=== PATIENT | female | born 1945 | race Caucasian/White ===

== ENCOUNTER 2017-10-19 13:55 | Inpatient (IN) | payer MEDICARE, BC ==
[2017-10-19] VITALS (14 sets, daily range): BP systolic 136–192; BP diastolic 73–100; PULSE 70–115; RESP 14–26; TEMP 98.3–99.2; O2SAT 88–100
[~2017-10-19 13:55] MED LIST: AMLO5TAB96 PO
[2017-10-19] MEDS: RESP: ALBUTEROL 2.5 MG/IPRATROPIUM 0.5 MG NEB (SCH) INH ×4 (14:09→23:35)
[2017-10-19 14:15] LABS: AUTOMATED NEUTROPHIL # 5.4 TH/MM3 (1.8-7.7); BASOPHIL # 0.1 TH/MM3 (0-0.2); EOSINOPHIL % 0.4 % (0.0-4.0); HEMOGLOBIN 13.8 GM/DL (11.6-15.3); LYMPH % 25.1 % (9.0-44.0); LYMPHOCYTE # 2.2 TH/MM3 (1.0-4.8); MEAN CELL VOLUME 89.7 FL (80.0-100.0); MEAN CORPUSCULAR HEMOGLOBIN 28.8 PG (27.0-34.0); MEAN CORPUSCULAR HGB CONC 32.1 % (32.0-36.0); MEAN PLATELET VOLUME 8.4 FL (7.0-11.0); MONO % 10.4 % (0.0-8.0); MONOCYTE # 0.9 TH/MM3 (0-0.9); NEUT % 63.1 % (16.0-70.0); PLATELET COUNT 285 TH/MM3 (150-450); RED BLOOD COUNT 4.79 MIL/MM3 (4.00-5.30); RED CELL DISTRIBUTION WIDTH 13.9 % (11.6-17.2); WHITE BLOOD COUNT 8.6 TH/MM3 (4.0-11.0)
[2017-10-19] MEDS ORDERED: SODIUM CHLORIDE 0.9% FLUSH 10 ML FLUSH IVF PRN (14:15)
[2017-10-19] MEDS ORDERED: methylPREDNISolone SOD SUCC 125 MG/2 ML VIAL IV PUSH ONE (14:15)
--- NOTE | 2017-10-19 14:17 | PD ---
HPI Chief Complaint: cough, back pain Time Seen by Provider: 14:01 Travel History International Travel<30 days: No Contact w/Intl Traveler<30days: No History of Present Illness HPI 72-year-old female arrives with a complaint of cough for the past 2 weeks. Sputum/green phlegm production noted. Patient also feels short of breath. Patient also reports back. Midthoracic back midline distribution. She denies fever. No chest pain. No injury. The patient reports she was told she had COPD however takes no medication for it. PFSH Past Medical History Arthritis: Yes Asthma: No Autoimmune Disease: No Blood Disorders: No Anxiety: No Depression: Yes Heart Rhythm Problems: No Cancer: No Cardiovascular Problems: Yes High Cholesterol: No Chemotherapy: No Chest Pain: No Congestive Heart Failure: No COPD: Yes Cerebrovascular Accident: No Diabetes: No Diminished Hearing: No Endocrine: No Gastrointestinal Disorders: Yes (OCC CONSTIPATION) GERD: Yes Glaucoma: No Genitourinary: Yes Headaches: No Hepatitis: No Hiatal Hernia: No Hypertension: Yes Immune Disorder: No Kidney Stones: Yes Musculoskeletal: Yes Neurologic: No Psychiatric: Yes Reproductive: No Respiratory: Yes Migraines: No Myocardial Infarction: No Radiation Therapy: No Renal Failure: No Seizures: No Sickle Cell Disease: No Sleep Apnea: No Thyroid Disease: No Ulcer: No Menopausal: Yes Past Surgical History Abdominal Surgery: No AICD: No Appendectomy: No Arteriovenous Shunt: No Cardiac Surgery: No Cholecystectomy: No Ear Surgery: No Endocrine Surgery: No Eye Surgery: No Genitourinary Surgery: No Gynecologic Surgery: No Insulin Pump: No Joint Replacement: No Oral Surgery: No Pacemaker: No Thoracic Surgery: No Tonsillectomy: Yes Other Surgery: Yes (TON/ADNO---@10YRS LUMPECT [place] [id number]) Social History Alcohol Use: No Tobacco Use: Yes (5 CIGS PER DAY) Substance Use: No Allergies-Medications (Allergen,Severity, Reaction): Coded Allergies: baclofen (Unverified Allergy, Severe, SHAKES/CAN'T BREATH, 10/19/17) cephalexin (Unverified Allergy, Severe, SWEATING/RASH, 10/19/17) escitalopram (Unverified Allergy, Severe, UNSURE, 10/19/17) gabapentin (Unverified Allergy, Severe, UNSURE, 10/19/17) chest burning pregabalin (Unverified Allergy, Severe, 10/19/17) chest burning topiramate (Unverified Allergy, Severe, UNSURE, 10/19/17) chest burning/ legs and feet burning moxifloxacin (Unverified Adverse Reaction, Severe, WEAKNESS IN LEGS, ) Reported Meds & Prescriptions Reported Meds & Active Scripts Active Proair Hfa 8.5 GM Inh (Albuterol Sulfate) 90 Mcg/Act Aer 1 Puff INH Q4H PRN 108 mcg/actuation Prednisone 20 Mg Tab 40 Mg PO DAILY 5 Days Take 40 mg (2 tablets) daily for 5 days Azithromycin 250 Mg Tab 250 Mg PO DIRECTED Take 2 tabs (500 mg) on day 1 then 1 tab daily x 4 days. Review of Systems Except as stated in HPI: all other systems reviewed are Neg General / Constitutional: No: Fever Eyes: No: Blurred Vision Physical Exam Narrative GENERAL: 72-year-old female pleasant well-nourished well-developed mild respiratory distress, speaking sentences SKIN: Warm and dry. HEAD: Atraumatic. Normocephalic. EYES: Pupils equal and round. No scleral icterus. No injection or drainage. ENT: No nasal bleeding or discharge. Mucous membranes pink and moist. NECK: Trachea midline. No JVD. CARDIOVASCULAR: Tachycardia to about 110. Regular. RESPIRATORY: Mild tachypnea. Trace wheezing. GASTROINTESTINAL: Abdomen soft, non-tender, nondistended. Hepatic and splenic margins not palpable. MUSCULOSKELETAL: Extremities without clubbing, cyanosis, or edema. No obvious deformities. NEUROLOGICAL: Awake and alert. No obvious cranial nerve deficits. Motor grossly within normal limits. Five out of 5 muscle strength in the arms and legs. Normal speech. PSYCHIATRIC: Appropriate mood and affect; insight and judgment normal. Data Data Last Documented VS Vital Signs Date Time Temp Pulse Resp B/P (MAP) Pulse Ox O2 Delivery O2 Flow Rate FiO2 10/19/17 15:21 90 22 146/78 (100) 93 Nasal Cannula 2.00 10/19/17 14:25 99.2 Orders Orders Electrocardiogram (10/19/17 14:01) Basic Metabolic Panel (Bmp) (10/19/17 14:01) Complete Blood Count With Diff (10/19/17 14:01) Lactic Acid Sepsis Protocol (10/19/17 14:01) Chest, Single Ap (10/19/17 14:01) Arterial Blood Gas (Abg) (10/19/17 14:01) Ecg Monitoring (10/19/17 14:01) Iv Access Insert/Monitor (10/19/17 14:01) Oximetry (10/19/17 14:01) Oxygen Administration (10/19/17 14:01) Sodium Chloride 0.9% Flush (Ns Flush) (10/19/17 14:15) Albuterol-Ipratropium Neb (Duoneb Neb) (10/19/17 14:15) Methylprednisolone So Succ Inj (Solumedr (10/19/17 14:15) Sodium Chlor 0.9% 1000 Ml Inj (Ns 1000 M (10/19/17 14:30) Acetamin-Hydrocod 325-5 Mg ([place] 5-325 (10/19/17 14:30) Azithromycin (Zithromax) (10/19/17 15:45) Admit Order (Ed Use Only) (10/19/17 ) Rug Cleaning Supervisor / Telemetry KRISTOPHER.Q8H (10/19/17 16:19) Vital Signs (Adult) Q4H (10/19/17 16:19) Activity Bed Rest (10/19/17 16:19) Labs Laboratory Tests Test 10/19/17 14:00 10/19/17 14:11 White Blood Count 8.6 TH/MM3 Red Blood Count 4.79 MIL/MM3 Hemoglobin 13.8 GM/DL Hematocrit 43.0 % Mean Corpuscular Volume 89.7 FL Mean Corpuscular Hemoglobin 28.8 PG Mean Corpuscular Hemoglobin Concent 32.1 % Red Cell Distribution Width 13.9 % Platelet Count 285 TH/MM3 Mean Platelet Volume 8.4 FL Neutrophils (%) (Auto) 63.1 % Lymphocytes (%) (Auto) 25.1 % Monocytes (%) (Auto) 10.4 % Eosinophils (%) (Auto) 0.4 % Basophils (%) (Auto) 1.0 % Neutrophils # (Auto) 5.4 TH/MM3 Lymphocytes # (Auto) 2.2 TH/MM3 Monocytes # (Auto) 0.9 TH/MM3 Eosinophils # (Auto) 0.0 TH/MM3 Basophils # (Auto) 0.1 TH/MM3 CBC Comment DIFF FINAL Differential Comment Blood Urea Nitrogen 31 MG/DL Creatinine 1.30 MG/DL Random Glucose 135 MG/DL Calcium Level 9.1 MG/DL Sodium Level 133 MEQ/L Potassium Level 4.3 MEQ/L Chloride Level 93 MEQ/L Carbon Dioxide Level 33.6 MEQ/L Anion Gap 6 MEQ/L Estimat Glomerular Filtration Rate 40 ML/MIN Lactic Acid Level 2.8 mmol/L Blood Gas Puncture Site RT RADIAL Blood Gas Patient Temperature 98.6 Blood Gas HCO3 33 mmol/L Blood Gas Base Excess 6.0 mmol/L Blood Gas Oxygen Saturation 97 % Arterial Blood pH 7.27 Arterial Blood Partial Pressure CO2 74 mmHG Arterial Blood Partial Pressure O2 372 mmHG Arterial Blood Oxygen Content 19.5 Vol % Arterial Blood Carboxyhemoglobin 1.4 % Arterial Blood Methemoglobin 1.1 % Blood Gas Hemoglobin 13.7 G/DL Oxygen Delivery Device NRB Blood Gas Liter Flow 12 L/M MDM Medical Decision Making Medical Screen Exam Complete: Yes Emergency Medical Condition: Yes Medical Record Reviewed: Yes Differential Diagnosis Pneumonia, COPD, pneumothorax, CHF Narrative Course CBC & BMP Diagram 10/19/17 14:00 Calcium Level 9.1 Lactic acid 2.8 Anion gap 6 AB.27/74/33 pO2 372 on NRB Pt reassessed at 335PM and found to be resting comfortably. Patient reports back pain has improved. Last Impressions Chest X-Ray 10/19/17 1401 Signed Impressions: Service Date/Time: October 14:14 - CONCLUSION: The lungs are clear. Ruiz Kennedy MD Pt attempted to ambulate however upon standing, O2 sat decreased to 90% and the patient began to hyperventilate. Admission for ongoing O2 and nebs. D/w Dr Arriaga at [phone] with a request to have building cleaner service manage patient D/w Dr Beaver at approx [phone] who accepted the patient Diagnosis Primary Impression: Bronchitis Additional Impressions: COPD (chronic obstructive pulmonary disease) Qualified Codes: J44.9 - Chronic obstructive pulmonary disease, unspecified Back pain Qualified Codes: M54.6 - Pain in thoracic spine; G89.29 - Other chronic pain Referrals: Primary Care Physician 2 days Med/Other Pt SpecificInfo: Prescription(s) given Scripts Albuterol 8.5 GM Inh (Proair Hfa 8.5 GM Inh) 90 Mcg/Act Aer 1 PUFF INH Q4H Y for SHORTNESS OF BREATH, #1 INHALER 0 Refills 108 mcg/actuation Prov: Brady Patel MD 10/19/17 Prednisone (Prednisone) 20 Mg Tab 40 MG PO DAILY for 5 Days, #10 TAB 0 Refills Take 40 mg (2 tablets) daily for 5 days Prov: Brady Patel MD 10/19/17 Azithromycin (Azithromycin) 250 Mg Tab 250 MG PO DIRECTED for Infection, #6 TAB 0 Refills Take 2 tabs (500 mg) on day 1 then 1 tab daily x 4 days. Prov: Brady Patel MD 10/19/17 Disposition: 01 DISCHARGE HOME Condition: Stable Brady Patel MD Oct 19, 2017 14:17
[2017-10-19 14:25] LABS: BICARBONATE 33.6 MEQ/L (21.0-32.0); CALCIUM 9.1 MG/DL (8.5-10.1)
--- NOTE | 2017-10-19 14:28 | RADRPT ---
EXAM DATE/TIME: 10/19/2017 14:14 [facility] COMPARISON: No previous studies available for comparison. INDICATIONS : Congestion and shortness of breath for two weeks. MEDICAL HISTORY : None. SURGICAL HISTORY : None. ENCOUNTER: Initial ACUITY: 2 weeks PAIN SCORE: 0/10 LOCATION: Bilateral chest FINDINGS: A single view of the chest demonstrates the lungs to be symmetrically aerated without evidence of mas s, infiltrate or effusion. The cardiomediastinal contours are unremarkable. Osseous structures are intact. CONCLUSION: The lungs are clear. Ruiz Kennedy MD on October 19, 2017 at 14:26 Board Certified Radiologist. This report was verified electronically.
[2017-10-19 14:29] LABS: CREATININE 1.3 MG/DL (0.50-1.00)
[2017-10-19] MEDS ORDERED: ACETAMINOPHEN/HYDROcodone 325 MG/5 MG TAB PO ONE (14:30)
[2017-10-19] MEDS ORDERED: SODIUM CHLOR 0.9% 1000 ML INJ 1,000 ML IV ONE (14:30)
[2017-10-19 14:32] LABS: LACTIC ACID SEPSIS PROTOCOL 2.8 mmol/L (0.4-2.0)
[2017-10-19] MEDS ORDERED: AZIT250T3 PO (15:41)
[2017-10-19] MEDS ORDERED: PRED20 PO (15:41)
[2017-10-19] MEDS ORDERED: ALBUAER3 INH (15:41)
[2017-10-19] MEDS ORDERED: AZITHROMYCIN 250 MG TAB PO ONE (15:45)
[2017-10-19] MEDS ORDERED: MISCELLANEOUS NURSING INFORMATION XX SCH (16:45)
[2017-10-19] MEDS ORDERED: MAGNESIUM HYDROXIDE SUSP 30 ML CUP PO PRN (16:45)
[2017-10-19] MEDS ORDERED: CHLORHEXIDINE GLUCONATE 2 % 1 PACK (2 CLOTHS) TOP PRN (16:45)
[2017-10-19] MEDS ORDERED: BISACODYL 10 MG SUPP RECTAL PRN (16:45)
[2017-10-19] MEDS ORDERED: ACETAMINOPHEN 325 MG TAB PO PRN (16:45)
[2017-10-19] MEDS ORDERED: LACTULOSE SYRUP 20 GM/30 ML CUP PO PRN (16:45)
[2017-10-19] MEDS ORDERED: ONDANSETRON HCL 4 MG/2 ML VIAL IV PUSH PRN (17:00)
[2017-10-19] MEDS ORDERED: RESP: ALBUTEROL 2.5 MG/3 ML NEB (PRN) NEB (17:00)
--- NOTE | 2017-10-19 17:01 | HHI.HP ---
[facility] Service Critical Care Medicine Primary Care Physician No Primary Care Physician Admission Diagnosis COPD; Back Pain Diagnosis: (1) Acute on chronic respiratory failure with hypoxemia Diagnosis: Principal (2) COPD with acute exacerbation Diagnosis: Principal (3) Hypertension Diagnosis: Principal (4) Encephalopathy, metabolic Diagnosis: Secondary Chief Complaint: Confused, difficulty breathing Travel History International Travel<30 Days: No Contact w/Intl Traveler <30 Da: No Traveled to Known Affected Are: No History of Present Illness This 72-year-old ill appearing woman presents to the emergency department with acute exacerbation of respiratory distress. She has COPD by history but became acutely worse over the past 36 hours. Her sister states that when she was confused earlier today, had markedly difficult respiratory pattern with quite labored breathing. Sister states that she had been coughing up greenish tinged sputum for several days now. There is edema involving both lower extremities, however the left side appears more chronic probably related to a previous melanoma resection. The right leg and ankle are acutely edematous. The patient has audible wheezing and labored breathing following several nebulizer treatments. Her partial pressure of carbon dioxide is 72, partly chronically compensated. My auscultation her air movement is poor bilaterally. Review of Systems Constitutional: DENIES: Diaphoretic episodes, Fatigue, Fever, Weight gain, Weight loss, Chills, Dizziness, Change in appetite, Night Sweats Endocrine: DENIES: Abnorml menstrual pattern, Heat/cold intolerance, Polydipsia , Polyuria, Polyphagia Eyes: DENIES: Blurred vision, Diplopia, Eye inflammation, Eye pain, Vision loss , Photosensitivity, Double Vision Respiratory: COMPLAINS OF: Cough, Wheezing, Sputum production, Shortness of breath Cardiovascular: COMPLAINS OF: Dyspnea on Exertion Gastrointestinal: DENIES: Abdominal pain, Black stools, Bloody stools, Constipation, Diarrhea, Nausea, Vomiting, Difficulty Swallowing, Anorexia Musculoskeletal: COMPLAINS OF: Back pain Immunologic/allergic: DENIES: Eczema, Urticaria Psychiatric: COMPLAINS OF: Confusion Past Family Social History Allergies: Coded Allergies: baclofen (Unverified Allergy, Severe, SHAKES/CAN'T BREATH, 10/19/17) cephalexin (Unverified Allergy, Severe, SWEATING/RASH, 10/19/17) escitalopram (Unverified Allergy, Severe, UNSURE, 10/19/17) gabapentin (Unverified Allergy, Severe, UNSURE, 10/19/17) chest burning pregabalin (Unverified Allergy, Severe, 10/19/17) chest burning topiramate (Unverified Allergy, Severe, UNSURE, 10/19/17) chest burning/ legs and feet burning moxifloxacin (Unverified Adverse Reaction, Severe, WEAKNESS IN LEGS, ) Past Medical History Past Medical History Arthritis: Yes Depression: Yes Cardiovascular Problems: Yes COPD: Yes Gastrointestinal Disorders: Yes (OCC CONSTIPATION) GERD: Yes Glaucoma: No Genitourinary: Yes Hypertension: Yes Immune Disorder: No Kidney Stones: Yes Musculoskeletal: Yes Neurologic: No Psychiatric: Yes Reproductive: No Respiratory: Yes Menopausal: Yes Past Surgical History Pacemaker: No Thoracic Surgery: No Tonsillectomy: Yes Other Surgery: Yes (TON/ADNO---@10YRS [address]) Social History Alcohol Use: No Tobacco Use: Yes (5 CIGS PER DAY) Substance Use: No Allergies-Medications Allergies-Medications (Allergen,Severity, Reaction): Coded Allergies: baclofen (Unverified Allergy, Severe, SHAKES/CAN'T BREATH, 10/19/17) cephalexin (Unverified Allergy, Severe, SWEATING/RASH, 10/19/17) escitalopram (Unverified Allergy, Severe, UNSURE, 10/19/17) gabapentin (Unverified Allergy, Severe, UNSURE, 10/19/17) chest burning pregabalin (Unverified Allergy, Severe, 10/19/17) chest burning topiramate (Unverified Allergy, Severe, UNSURE, 10/19/17) chest burning/ legs and feet burning moxifloxacin (Unverified Adverse Reaction, Severe, WEAKNESS IN LEGS, ) Reported Meds & Prescriptions Reported Meds & Active Scripts Active Proair Hfa 8.5 GM Inh (Albuterol Sulfate) 90 Mcg/Act Aer 1 Puff INH Q4H PRN 108 mcg/actuation Prednisone 20 Mg Tab 40 Mg PO DAILY 5 Days Take 40 mg (2 tablets) daily for 5 days Azithromycin 250 Mg Tab 250 Mg PO DIRECTED Take 2 tabs (500 mg) on day 1 then 1 tab daily x 4 days. Physical Exam Vital Signs Vital Signs Date Time Temp Pulse Resp B/P (MAP) Pulse Ox O2 Delivery O2 Flow Rate FiO2 10/19/17 16:50 10/19/17 15:21 90 22 146/78 (100) 93 Nasal Cannula 2.00 10/19/17 14:25 99.2 72 22 176/89 (118) 97 Nasal Cannula 2.00 10/19/17 14:12 100 Non-Rebreather 12.00 10/19/17 14:00 115 24 192/100 (130) 88 10/19/17 14:00 88 Non-Rebreather 15.00 10/19/17 14:00 115 24 97 Non-Rebreather 15.00 10/19/17 14:00 88 Non-Rebreather 15.00 Physical Exam Pulse 115, blood pressure 192/100, respiratory rate 16 unlabored, temperature 99.2 Head: Atraumatic normal Neck: Supple airway widely patent audible transmitted wheezes Lungs: Bilateral coarse breath sounds with both rhonchi and crackles. Wheezing both sides worse on the right. 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 Right lower extremity is edematous at the ankle and lower leg with pitting and very mild erythema Neuro: She is slow to respond but is conversant when you get her attention. She moves 4 extremities to command. Pupillary response, extraocular movements, smile, grimace, tongue protrusion, shoulder shrug, normal. Generally lethargic and confused. Laboratory Laboratory Tests Test 10/19/17 14:00 10/19/17 14:11 White Blood Count 8.6 Red Blood Count 4.79 Hemoglobin 13.8 Hematocrit 43.0 Mean Corpuscular Volume 89.7 Mean Corpuscular Hemoglobin 28.8 Mean Corpuscular Hemoglobin Concent 32.1 Red Cell Distribution Width 13.9 Platelet Count 285 Mean Platelet Volume 8.4 Neutrophils (%) (Auto) 63.1 Lymphocytes (%) (Auto) 25.1 Monocytes (%) (Auto) 10.4 Eosinophils (%) (Auto) 0.4 Basophils (%) (Auto) 1.0 Neutrophils # (Auto) 5.4 Lymphocytes # (Auto) 2.2 Monocytes # (Auto) 0.9 Eosinophils # (Auto) 0.0 Basophils # (Auto) 0.1 CBC Comment DIFF FINAL Differential Comment Blood Urea Nitrogen 31 Creatinine 1.30 Random Glucose 135 Calcium Level 9.1 Sodium Level 133 Potassium Level 4.3 Chloride Level 93 Carbon Dioxide Level 33.6 Anion Gap 6 Estimat Glomerular Filtration Rate 40 Lactic Acid Level 2.8 Blood Gas Puncture Site RT RADIAL Blood Gas Patient Temperature 98.6 Blood Gas HCO3 33 Blood Gas Base Excess 6.0 Blood Gas Oxygen Saturation 97 Arterial Blood pH 7.27 Arterial Blood Partial Pressure CO2 74 Arterial Blood Partial Pressure O2 372 Arterial Blood Oxygen Content 19.5 Arterial Blood Carboxyhemoglobin 1.4 Arterial Blood Methemoglobin 1.1 Blood Gas Hemoglobin 13.7 Oxygen Delivery Device NRB Blood Gas Liter Flow 12 Result Diagram: 10/19/17 1400 10/19/17 1400 Yamil VTE Risk Assessment Yamil VTE Risk Assessment: Mod/High Risk (score >= 2) Sreekanthrini Risk Assessment Model Point Value = 1 Point Value = 2 Point Value = 3 Point Value = 5 Age 41-60 Minor surgery BMI > 25 kg/m2 Swollen legs Varicose veins or History of unexplained or recurrent spontaneous Oral contraceptives or hormone replacement Sepsis (< 1 month) Serious lung disease, including pneumonia (< 1 month) Abnormal pulmonary function Acute myocardial infarction Congestive heart failure (< 1 month) History of inflammatory bowel disease Medical patient at bed rest Age 61-74 Arthroscopic surgery Major open surgery (> 45 min) Laparoscopic surgery (> 45 min) Malignancy Confined to bed (> 72 hours) Immobilizing plaster cast Central venous access Age >= 75 History of VTE Family history of VTE Factor V Leiden Prothrombin [id number] Lupus anticoagulant Anticardiolipin antibodies Elevated serum homocysteine Heparin-induced thrombocytopenia Other congenital or acquired thrombophilia Stroke (< 1 month) Elective arthroplasty Hip, pelvis, or leg fracture Acute spinal cord injury (< 1 month) Prophylaxis Regimen Total Risk Factor Score Risk Level Prophylaxis Regimen 0-1 Low Early ambulation 2 Moderate Order ONE of the following: *Sequential Compression Device (SCD) *Heparin 5000 units SQ BID 3-4 Higher Order ONE of the following medications: *Heparin 5000 units SQ TID *Enoxaparin/Lovenox 40 mg SQ daily (WT < 150 kg, CrCl > 30 mL/min) *Enoxaparin/Lovenox 30 mg SQ daily (WT < 150 kg, CrCl > 10-29 mL/min) *Enoxaparin/Lovenox 30 mg SQ BID (WT < 150 kg, CrCl > 30 mL/min) AND/OR *Sequential Compression Device (SCD) 5 or more Highest Order ONE of the following medications: *Heparin 5000 units SQ TID (Preferred with Epidurals) *Enoxaparin/Lovenox 40 mg SQ daily (WT < 150 kg, CrCl > 30 mL/min) *Enoxaparin/Lovenox 30 mg SQ daily (WT < 150 kg, CrCl > 10-29 mL/min) *Enoxaparin/Lovenox 30 mg SQ BID (WT < 150 kg, CrCl > 30 mL/min) AND *Sequential Compression Device (SCD) Assessment and Plan Problem List: (1) Acute on chronic respiratory failure with hypoxemia ICD Code: J96.21 - Acute and chronic respiratory failure with hypoxia Status: Acute (2) COPD with acute exacerbation ICD Code: J44.1 - Chronic obstructive pulmonary disease with (acute) exacerbation Status: Acute (3) Encephalopathy, metabolic ICD Code: G93.41 - Metabolic encephalopathy Status: Acute (4) Hypertension ICD Code: I10 - Essential (primary) hypertension Status: Chronic Assessment and Plan Plan: 1. Admit ICU. 2. Noninvasive ventilation at 12/5 3. Maintain oxygen saturation at 87-93% 4. Pepcid and Lovenox for prophylaxis 5. Azithromycin for chronic bronchitis/COPD exacerbation 6. Lasix 40 mg twice daily. Hold IV fluid. 7. Repeat CBC and lactic acid in a.m. 8. Bed rest tonight up in chair in morning 9. Follow electrolytes closely anticipate marked diuresis 10. Cardiac ECHO Overall impression: This elderly woman is critically ill with an acute exacerbation of COPD complicated by hypoxemia and fluid overload. Her chest x- ray is read as clear but there appears to be hilar congestion and there is a worrisome chronic infiltrate in the right lower lobe. Her fever is minimal at 99.2 and her white count and differential are normal. I suspect this is pretty typical COPD exacerbation but complicated by some element of fluid overload and/ or heart failure. Critical Care 45 mins Problem Qualifiers (1) Hypertension: Qualified Codes: I10 - Essential (primary) hypertension Adama Hernandez MD Oct 19, 2017 17:01
[2017-10-19] MEDS ORDERED: MAGNESIUM OXIDE 400 MG TAB PO PRN (17:30)
[2017-10-19] MEDS ORDERED: POTASSIUM CHLORIDE 25 MEQ EFFERVESCENT TAB PO PRN (17:30)
[2017-10-19] MEDS ORDERED: MAGNESIUM SULFATE INJ 4 GM in SODIUM CHLORIDE 0.9% INJ 92 ML IV PRN (17:30)
[2017-10-19] MEDS ORDERED: POTASSIUM PHOSPHATE MONOBASIC 500 MG TAB PO/TUBE PRN (17:30)
[2017-10-19] MEDS ORDERED: POTASSIUM PHOSPHATE MONOBASIC 500 MG TAB PO PRN (17:30)
[2017-10-19] MEDS ORDERED: MAGNESIUM SULFATE INJ 2 GM in SODIUM CHLORIDE 0.9% INJ 96 ML IV PRN (17:30)
[2017-10-19] MEDS ORDERED: POTASSIUM CHLOR 20 MEQ PREMIX 100 ML IV PRN ×2 (17:30)
[2017-10-19] MEDS ORDERED: POTASSIUM PHOSPHATE INJ 30 MMOL in SODIUM CHLOR 0.9% 250 ML INJ 250 ML IV PRN (17:30)
[2017-10-19] MEDS ORDERED: SODIUM PHOSPHATE INJ 30 MMOL in SODIUM CHLOR 0.9% 250 ML INJ 240 ML IV PRN (17:30)
[2017-10-19] MEDS ORDERED: POTASSIUM CHLOR 40 MEQ PREMIX 100 ML IV PRN ×2 (17:30)
[2017-10-19] MEDS ORDERED: GLUCAGON 1 MG/ML VIAL OTHER PRN (17:45)
[2017-10-19] MEDS ORDERED: DEXTROSE 50% IN WATER 50 ML VIAL(D50) IV PUSH PRN (17:45)
[2017-10-19] MEDS: FUROSEMIDE 40 MG/4 ML VIAL IV PUSH SCH (18:38)
[2017-10-19] MEDS: ENOXAPARIN SODIUM 40 MG/0.4 ML SYRINGE SQ SCH (18:38)
[2017-10-19] MEDS: methylPREDNISolone SOD SUCC 125 MG/2 ML VIAL IV PUSH SCH (18:38)
[2017-10-19] MEDS: ACETAMINOPHEN/HYDROcodone 325 MG/5 MG TAB PO PRN (18:39)
--- NOTE | 2017-10-19 20:17 | EKG ---
Date Performed: 10/19/2017 Time Performed: 14:08:11 PTAGE: 72 years EKG: Sinus rhythm NONSPECIFIC ST/T CHANGES NO PREVIOUS TRACING DOCTOR: Rocco Perez Interpretating Date/Time 10/19/2017 20:15:14
[2017-10-19] MEDS ORDERED: SENNOSIDES 8.6 MG TAB PO PRN (21:00)
[2017-10-19] MEDS: INSULIN ASPART SUPPLEMENTAL SCALE SQ SCH (21:00)
[2017-10-19] MEDS: FAMOTIDINE 20 MG TAB PO SCH (21:00)
[2017-10-19] MEDS: DOCUSATE SODIUM 50 MG/SENNA 8.6 MG TAB PO SCH (21:00)
[2017-10-20] VITALS (37 sets, daily range): BP systolic 115–157; BP diastolic 55–89; PULSE 62–104; RESP 0–39; TEMP 97.9–98.6; O2SAT 79–95
[2017-10-20] MEDS: RESP: ALBUTEROL 2.5 MG/IPRATROPIUM 0.5 MG NEB (SCH) INH ×5 (03:05→20:08)
[2017-10-20] MEDS: CHLORHEXIDINE GLUCONATE 2 % 1 PACK (2 CLOTHS) TOP SCH (03:28)
[2017-10-20 05:26] LABS: AUTOMATED NEUTROPHIL # 3.4 TH/MM3 (1.8-7.7); BASOPHIL # 0.2 TH/MM3 (0-0.2); BASOPHIL % 3.8 % (0.0-2.0); EOSINOPHIL % 0.1 % (0.0-4.0); HEMATOCRIT 37.6 % (35.0-46.0); HEMOGLOBIN 12.1 GM/DL (11.6-15.3); LYMPH % 18.1 % (9.0-44.0); LYMPHOCYTE # 0.9 TH/MM3 (1.0-4.8); MEAN CELL VOLUME 90.3 FL (80.0-100.0); MEAN CORPUSCULAR HEMOGLOBIN 29.1 PG (27.0-34.0); MEAN CORPUSCULAR HGB CONC 32.3 % (32.0-36.0); MEAN PLATELET VOLUME 8.4 FL (7.0-11.0); MONO % 4.8 % (0.0-8.0); MONOCYTE # 0.2 TH/MM3 (0-0.9); NEUT % 73.2 % (16.0-70.0); PLATELET COUNT 203 TH/MM3 (150-450); RED BLOOD COUNT 4.16 MIL/MM3 (4.00-5.30); RED CELL DISTRIBUTION WIDTH 13.9 % (11.6-17.2); WHITE BLOOD COUNT 4.7 TH/MM3 (4.0-11.0)
[2017-10-20 05:38] LABS: CALCIUM 8.6 MG/DL (8.5-10.1)
[2017-10-20 05:39] LABS: BICARBONATE 35.2 MEQ/L (21.0-32.0)
[2017-10-20 05:42] LABS: CREATININE 1.2 MG/DL (0.50-1.00)
[2017-10-20] MEDS: methylPREDNISolone SOD SUCC 125 MG/2 ML VIAL IV PUSH SCH ×4 (06:29→17:44)
[2017-10-20] MEDS: FAMOTIDINE 20 MG TAB PO SCH ×2 (09:33→21:44)
[2017-10-20] MEDS: DOCUSATE SODIUM 50 MG/SENNA 8.6 MG TAB PO SCH ×2 (09:33→21:44)
[2017-10-20] MEDS: FUROSEMIDE 40 MG/4 ML VIAL IV PUSH SCH ×2 (09:33→17:46)
[2017-10-20] MEDS: INSULIN ASPART SUPPLEMENTAL SCALE SQ SCH ×4 (09:33→21:00)
--- NOTE | 2017-10-20 16:53 | ECHRPT ---
Indication: CONCLUSIONS The left ventricular systolic function is normal with an estimated ejection fraction in the range of 60-65%. Normal left ventricular size. Wall thickness is normal. No regional wall motion abnormalities are present. Trace mitral valve regurgitation. Aortic valve sclerosis is present. There is trace tricuspid valve regurgitation. The estimated pulmonary arterial pressure is 37 mmHg. The pulmonary valve is not well visualized. BP: 150 / 74 HR: 99 Rhythm: Sinus MEASUREMENTS (Male / Female) Normal Values Technical Quality:Good 2D ECHO LV Ejection Fraction MOD 4C 70.0 % LV Ejection Fraction 4C AL 71.6 % DOPPLER AV Peak Velocity 156.0 cm/s AV Peak Gradient 9.7 mmHg LVOT Peak Velocity 111.0 cm/s LVOT Peak Gradient 4.9 mmHg MV Area PHT 4.2 cm Mitral E Point Velocity 109.0 cm/s Mitral A Point Velocity 99.7 cm/s Mitral E to A Ratio 1.1 LV E' Lateral Velocity 8.6 cm/s Mitral E to LV E' Lateral Ratio 12.7 LV E' Septal Velocity 7.1 cm/s Mitral E to LV E' Septal Ratio 15.3 FINDINGS LEFT VENTRICLE The left ventricular systolic function is normal with an estimated ejection fraction in the range of 60-65%. Normal left ventricular size. Wall thickness is normal. No regional wall motion abnormalities are present. RIGHT VENTRICLE Normal right ventricular size and systolic function. LEFT ATRIUM The left atrial size is normal. RIGHT ATRIUM The right atrial size is normal. ATRIAL SEPTUM Normal atrial septal thickness without atrial level shunting by limited color doppler interrogation. AORTA The aortic root and proximal ascending aorta are normal in size on limited imaging. MITRAL VALVE Structurally normal mitral valve. Trace mitral valve regurgitation. AORTIC VALVE Trileaflet aortic valve. Aortic valve sclerosis is present. TRICUSPID VALVE Structurally normal tricuspid valve. There is trace tricuspid valve regurgitation. The estimated pulmonary arterial pressure is 37 mmHg. PULMONARY VALVE The pulmonary valve is not well visualized. VESSELS The inferior vena cava is normal in size. PERICARDIUM No pericardial effusion. Donnell Phan MD, FACC (Electronically Signed) Final Date:20 October 2017 16:53
[2017-10-20] MEDS: AZITHROMYCIN INJ 250 MG in SODIUM CHLOR 0.9% 250 ML INJ 250 ML IV SCH (17:33)
[2017-10-20] MEDS: ENOXAPARIN SODIUM 40 MG/0.4 ML SYRINGE SQ SCH (17:47)
--- NOTE | 2017-10-20 20:20 | MB ---
cc: Po Prieto MD, V J MD DATE: 10/20/2017 REASON FOR CONSULTATION: Respiratory failure and COPD. HISTORY OF PRESENT ILLNESS: This is a 72-year-old lady who has a long history of smoking, apparently developed a cough, chest congestion and greenish yellow expectoration of 4 to 5 days' duration. The patient stated that her breathing got much worse and she had to come to the emergency room where she was noted to be in severe respiratory distress and thus was placed on a BiPAP mask and subsequently admitted to the ICU. She also had significant leg edema and was given IV Lasix. The patient does have a history of COPD and she was started on antibiotic therapy, IV Solu-Medrol, and nebulized bronchodilators and she is now much better. She is coughing up clear mucus. Denies fevers, chills. Denies nausea, vomiting and has no abdominal pains. PAST MEDICAL HISTORY: Significant for depression and anxiety, history of hypertension and history of arthritis. PAST SURGICAL HISTORY: Includes breast lumpectomy on the left, also a tonsillectomy remotely and resection of skin cancers from the left leg. HABITS: The patient smoked 1 pack per day for over 50 years and quit 4 years ago. No significant alcohol use. ALLERGIES: BACLOFEN, KEFLEX, GABAPENTIN, TOPIRAMATE, MOXIFLOXACIN AND CITALOPRAM FAMILY HISTORY: There is a history of heart disease in several members of her family and a history of hypertension. No diabetes or chronic lung disease. One sister of malignancy. PHYSICAL EXAMINATION: GENERAL: This is a moderately obese, elderly lady who is mildly dyspneic. The face is plethoric. She has tremors of the extremities. VITAL SIGNS: Blood pressure 140/70, pulse 80, respirations 22, temperature 98.2. HEENT: Head is normocephalic. Pupils are reactive. Tongue is moist. Nasal mucosa edematous. Throat injected. NECK: No bruits or thyroid enlargement or lymphadenopathy. CHEST: Distant breath sounds with expiratory wheezes bilaterally, prolonged expirations. HEART: The heart sounds are irregular, S1 and S2. ABDOMEN: Soft, protuberant without masses. No organomegaly or tenderness. Bowel sounds are active. EXTREMITIES: 1+ edema. There are some keratotic skin lesions up left lower extremity around the ankle and the lower leg. Peripheral pulses are not well felt. NEUROLOGIC: Reflexes are 1+ with no gross motor deficits. Cranial nerves are grossly intact. RECTAL: Deferred. ASSESSMENT: 1. Acute on chronic respiratory failure, resolving. 2. Chronic obstructive pulmonary disease with acute exacerbation. 3. History of hypertension. PLAN: The patient will be maintained on O2 at 3 liters nasal cannula, BiPAP at night. We will continue with antibiotics including Zithromax 500 mg IV daily and Lasix will be switched to p.o. Lasix 20 mg a day[address] A [address] scan of the chest without contrast to be done to evaluate her for lung nodules. Pulmonary function study at the bedside with bronchodilators. Symbicort 160/4.5 mcg 2 puffs twice daily was ordered, and the patient may need home oxygen upon discharge, and this will be arranged after a 6-minute walk test. Thank you, Dr. Hernandez, for this consultation. VMayra Prieto MD VJD//mimi , 06:51 PM , 07:41 PM
[2017-10-20 20:48] LABS: BICARBONATE 37.7 MEQ/L (21.0-32.0); CALCIUM 8.6 MG/DL (8.5-10.1)
[2017-10-20 20:50] LABS: CREATININE 1.4 MG/DL (0.50-1.00)
[2017-10-20] MEDS: BUDESONIDE-FORMOTEROL 160/4.5 MCG INHALER INH SCH (21:48)
--- NOTE | 2017-10-20 22:26 | HHI.CCPN ---
Subjective Remarks/Hospital Course Admission Diagnosis COPD exacerbation; Back Pain Diagnosis: (1) Acute on chronic respiratory failure with hypoxemia Diagnosis: Principal (2) COPD with acute exacerbation Diagnosis: Principal (3) Hypertension Diagnosis: Principal (4) Encephalopathy, metabolic Diagnosis: Secondary Chief Complaint: Confused, difficulty breathing History of Present Illness This 72-year-old ill appearing woman presents to the emergency department with acute exacerbation of respiratory distress. She has COPD by history but became acutely worse over the past 36 hours. Her sister states that when she was confused earlier today, had markedly difficult respiratory pattern with quite labored breathing. Sister states that she had been coughing up greenish tinged sputum for several days now. There is edema involving both lower extremities, however the left side appears more chronic probably related to a previous melanoma resection. The right leg and ankle are acutely edematous. The patient has audible wheezing and labored breathing following several nebulizer treatments. Her partial pressure of carbon dioxide is 72, partly chronically compensated. My auscultation her air movement is poor bilaterally. 06: Much improved air movement after night on BiPAP, steroids, abx, bronchodilators. 1,500 ml diuresis and less leg edema. pH looks better due to contraction of volume but PCO2 unchanged. Wheezing largely resolved. Objective Vital Signs Date Time Temp Pulse Resp B/P (MAP) Pulse Ox O2 Delivery O2 Flow Rate FiO2 10/20/17 21:01 98.2 86 19 139/64 (89) 93 10/20/17 15:46 Nasal Cannula 2.00 10/20/17 07:55 21 Intake and Output 10/20/17 10/20/17 10/21/17 08:00 16:00 00:00 Intake Total 730 ml Output Total 1500 ml 850 ml Balance -1500 ml -120 ml Result Diagram: 10/20/1751410/20/172032 Other Results Laboratory Tests Test 10/20/17 05:16 Blood Gas Puncture Site LT RADIAL Blood Gas Patient Temperature 37.0 Blood Gas HCO3 36 mmol/L (22-26) Blood Gas Base Excess 9.2 mmol/L (-2-2) Blood Gas Oxygen Saturation 89 % (90-100) Arterial Blood pH 7.31 (7.380-7.420) Arterial Blood Partial Pressure CO2 72 mmHg (38-42) Arterial Blood Partial Pressure O2 67 mmHg (61-120) Arterial Blood Oxygen Content 15.7 Vol % (12.0-20.0) Arterial Blood Carboxyhemoglobin 1.5 % (0-4) Arterial Blood Methemoglobin 1.1 % (0-2) Blood Gas Hemoglobin 12.5 G/DL (12.0-16.0) Oxygen Delivery Device BIPAP Blood Gas Ventilator Setting IPAP10/EPAP5 Blood Gas Inspired Oxygen 30 % Objective Remarks Pulse 86, blood pressure 132/84, respiratory rate 14 unlabored, sat 92% Head: Atraumatic normal Neck: Supple airway widely patent. No obstruction. Lungs: Bilateral clear breath sounds with light wheezing right. Ventilatory pattern is unlabored Heart: Quite distant tones normal S1-S2 regular rate and rhythm no audible murmur or rub. No JVD. Abdomen: Nondistended soft no guarding no pain to palpation, bs active. Extremities: Left lower extremity is chronically edematous with white scarring following a skin malignancy resection. Right lower extremity is much less edematous at the ankle and lower leg. Neuro: Much more alert, O X 3, conversant. She moves 4 extremities to command. Pupillary response, extraocular movements, smile, grimace, tongue protrusion, shoulder shrug, normal. A/P Problem List: (1) Acute on chronic respiratory failure with hypoxemia ICD Code: J96.21 - Acute and chronic respiratory failure with hypoxia Status: Acute (2) COPD with acute exacerbation ICD Code: J44.1 - Chronic obstructive pulmonary disease with (acute) exacerbation Status: Acute (3) Encephalopathy, metabolic ICD Code: G93.41 - Metabolic encephalopathy Status: Acute (4) Hypertension ICD Code: I10 - Essential (primary) hypertension Status: Chronic Assessment and Plan Plan: 1. Remain ICU. 2. Noninvasive ventilation at 12/5 prn only. 3. Maintain oxygen saturation at 87-93% 4. Pepcid and Lovenox for prophylaxis 5. Azithromycin for chronic bronchitis/COPD exacerbation 6. Reduce Lasix. Hold IV fluid. 7. Repeat CBC in a.m. 8. Bed rest tonight up in chair. 9. Follow electrolytes closely anticipate marked diuresis 10. Cardiac ECHO 11. Hospitalist Service. Overall impression: This elderly woman arrived critically ill with an acute exacerbation of COPD complicated by hypoxemia. I suspect this is a pretty typical COPD exacerbation. A prerenal azotemia has developed with aggressive diuresis and I suspect I overshot fluid removal. I'll let her drink to her thirst at this point - she is alert and interactive now. She is dramatically improved today and breathing quite comfortably. Her ECHO is normal and pulmonary pressures are not significantly elevated. I will ask Dr. Choudhary to see her and follow her after discharge. Problem Qualifiers (1) Hypertension: Qualified Codes: I10 - Essential (primary) hypertension Adama Hernandez MD Oct 20, 2017 22:26
[2017-10-21] VITALS (20 sets, daily range): BP systolic 118–159; BP diastolic 61–89; PULSE 66–86; RESP 12–47; TEMP 98.3–98.8; O2SAT 84–99
[2017-10-21] MEDS: RESP: ALBUTEROL 2.5 MG/IPRATROPIUM 0.5 MG NEB (SCH) INH ×6 (00:01→20:00)
--- NOTE | 2017-10-21 00:09 | RADRPT ---
EXAM DATE/TIME: 10/20/2017 23:32 [facility] COMPARISON: No previous studies available for comparison. INDICATIONS : Short of breath and congestion. RADIATION DOSE: 11.73 CTDIvol (mGy) MEDICAL HISTORY : Hypertension. Chronic obstructive pulmonary disease. Renal calculi. SURGICAL HISTORY : None. ENCOUNTER: Initial ACUITY: 2 weeks PAIN SCALE: 0/10 LOCATION: Bilateral chest TECHNIQUE: Volumetric scanning of the chest was performed. Using automated exposure control and adjustment of t he mA and/or kV according to patient size, radiation dose was kept as low as reasonably achievable to obtain optimal diagnostic quality images. DICOM format image data is available electronically for r eview and comparison. Follow-up recommendations for detected pulmonary nodules are based at a minimum on nodule size and pa tient risk factors according to Fleischner Society Guidelines. FINDINGS: LUNGS: Moderate severity pulmonary parenchymal emphysema with upper lobe predominance. Mild atelectasis of t he dependent inferior portion of the right lower lobe. Patchy atelectasis in the lingula. Minimal kenzie e in bud opacity in the left upper lobe/lingula. PLEURAE: There is no pleural thickening or pleural effusion. MEDIASTINUM: Extensive aortic and coronary artery calcification. Aortic diameter within normal limits. No enlarged lymph nodes. AXILLAE: Within normal limits. No lymphadenopathy. MUSCULOSKELETAL: Within normal limits for patient age. MISCELLANEOUS: The visualized upper abdominal organs demonstrate no acute abnormality. CONCLUSION: 1. Moderate severity upper lobe predominant pulmonary parenchymal emphysema. 2. Mild inflammatory change/atelectasis in the lingula less left upper lobe. No evidence of pulmonary consolidation. 3. Atherosclerotic disease with extensive aortic calcification. Coronary artery calcification. Zack Osuna MD on October 21, 2017 at 0:01 Board Certified Radiologist. This report was verified electronically.
[2017-10-21] MEDS: methylPREDNISolone SOD SUCC 40 MG/1 ML VIAL IV PUSH SCH ×4 (01:04→18:28)
[2017-10-21] MEDS: CHLORHEXIDINE GLUCONATE 2 % 1 PACK (2 CLOTHS) TOP SCH (04:00)
[2017-10-21] MEDS: INSULIN ASPART SUPPLEMENTAL SCALE SQ SCH ×4 (08:00→21:00)
[2017-10-21] MEDS: BUDESONIDE-FORMOTEROL 160/4.5 MCG INHALER INH SCH ×2 (08:44→21:02)
[2017-10-21] MEDS: FUROSEMIDE 20 MG TAB PO SCH (08:44)
[2017-10-21] MEDS: DOCUSATE SODIUM 50 MG/SENNA 8.6 MG TAB PO SCH ×2 (08:44→21:02)
[2017-10-21] MEDS: FAMOTIDINE 20 MG TAB PO SCH ×2 (08:44→21:02)
[2017-10-21] MEDS: ACETAMINOPHEN/HYDROcodone 325 MG/5 MG TAB PO PRN (12:30)
--- NOTE | 2017-10-21 13:03 | HHI.PR ---
Subjective Remarks Patient seen in room in follow-up for respiratory failure secondary to acute exacerbation of chronic COPD Patient's hypercapnia is improved and hypoxemia is improved Complains today of constipation Care plan discussed with LOG HOOKER and patient Objective Vitals Vital Signs Date Time Temp Pulse Resp B/P (MAP) Pulse Ox O2 Delivery O2 Flow Rate FiO2 10/21/17 07:52 94 Nasal Cannula 2.00 10/21/17 06:02 68 47 140/74 (96) 96 10/21/17 05:02 98.3 144/74 (97) 95 10/21/17 04:02 70 16 140/72 (94) 97 10/21/17 03:02 74 16 135/76 (95) 84 10/21/17 02:02 74 19 118/72 (87) 93 10/21/17 01:02 98.5 78 18 134/65 (88) 95 10/21/17 00:02 78 22 140/78 (98) 95 10/21/17 00:02 78 22 140/78 (98) 95 10/20/17 23:01 76 19 125/65 (85) 92 10/20/17 23:00 82 10/20/17 22:01 98 22 138/70 (92) 94 10/20/17 21:01 98.2 86 19 139/64 (89) 93 10/20/17 20:08 94 Nasal Cannula 2.00 10/20/17 20:01 82 21 138/56 (83) 92 10/20/17 19:01 94 22 157/73 (101) 94 10/20/17 18:01 104 39 156/89 (111) 92 10/20/17 18:00 102 10/20/17 17:01 92 20 136/70 (92) 88 10/20/17 16:01 97.9 90 22 123/61 (81) 94 10/20/17 16:00 92 10/20/17 15:46 93 Nasal Cannula 2.00 10/20/17 15:01 90 18 143/66 (91) 90 10/20/17 15:00 88 10/20/17 14:01 90 5 139/61 (87) 94 10/20/17 13:01 88 9 138/55 (82) 92 I/O 10/20/17 10/20/17 10/20/17 10/21/17 10/21/17 4/7/18 07:00 15:00 23:00 07:00 15:00 23:00 Intake Total 730 ml Output Total 1500 ml 850 ml 1200 ml Balance -1500 ml -120 ml -1200 ml Intake Oral 480 ml IV Total 250 ml Output Urine Total 1500 ml 850 ml 1200 ml Stool Total 0 ml Result Diagram: 10/20/17 0515 10/20/172032 Imaging Last Impressions Chest CT 10/20/17 184 Signed Impressions: Service Date/Time: Friday, October 20, 2017 23:32 - CONCLUSION: 1. Moderate severity upper lobe predominant pulmonary parenchymal emphysema. 2. Mild inflammatory change/atelectasis in the lingula less left upper lobe. No evidence of pulmonary consolidation. 3. Atherosclerotic disease with extensive aortic calcification. Coronary artery calcification. Zack Osuna MD Chest X-Ray 10/19/17 1401 Signed Impressions: Service Date/Time: October 14:14 - CONCLUSION: The lungs are clear. Ruiz Kennedy MD Objective Remarks GENERAL: This is a well-nourished, well-developed patient, in no apparent distress. CARDIOVASCULAR: Regular rate and rhythm without murmurs, gallops, or rubs. RESPIRATORY: Clear to auscultation. Breath sounds equal bilaterally. No wheezes , rales, or rhonchi. GASTROINTESTINAL: Abdomen soft, non-tender, nondistended. Normal active bowel sounds MUSCULOSKELETAL: Extremities without clubbing, cyanosis, or edema. NEURO: Alert & Oriented x4 to person, place, time, situation. Moves all ext x4 A/P Problem List: (1) Acute on chronic respiratory failure with hypoxemia ICD Code: J96.21 - Acute and chronic respiratory failure with hypoxia Status: Acute Plan: Overall improved after BiPAP, steroids and bronchodilators No oxygen at home Continue to wean as tolerated Echocardiogram unremarkable other than elevated PA pressure (2) COPD with acute exacerbation ICD Code: J44.1 - Chronic obstructive pulmonary disease with (acute) exacerbation Status: Acute Plan: Patient on no home medications due to poor adherence to follow-up Continue to follow-up with nebulizers and patient education Primary function testing per pulmonary consult which is appreciated (3) Hypertension ICD Code: I10 - Essential (primary) hypertension Status: Chronic Discharge Planning Likely discharge home 1-2 days pending progress We will need walk test prior to discharge on oral steroids Patient adherence to outpatient follow-up is discussed Problem Qualifiers (1) Hypertension: Qualified Codes: I10 - Essential (primary) hypertension Jazmyne Arriaga MD Oct 21, 2017 13:03
--- NOTE | 2017-10-21 17:45 | HHI.PR ---
Subjective Remarks 72 YOWF with Resp Failure, COPD exac Weaned to NC Breathing better Cough, small amount of sp No fever Objective Vital Signs Vital Signs Date Time Temp Pulse Resp B/P (MAP) Pulse Ox O2 Delivery O2 Flow Rate FiO2 10/21/17 15:02 98.8 66 15 128/63 (84) 88 10/21/17 14:02 70 18 137/61 (86) 98 10/21/17 13:02 76 12 140/67 (91) 96 10/21/17 11:02 68 16 139/65 (89) 96 10/21/17 10:02 78 20 139/69 (92) 99 10/21/17 09:02 78 26 135/84 (101) 94 10/21/17 08:02 74 14 159/89 (112) 97 10/21/17 07:52 94 Nasal Cannula 2.00 10/21/17 07:02 68 31 159/83 (108) 99 10/21/17 06:02 68 47 140/74 (96) 96 10/21/17 05:02 98.3 144/74 (97) 95 10/21/17 04:02 70 16 140/72 (94) 97 10/21/17 03:02 74 16 135/76 (95) 84 10/21/17 02:02 74 19 118/72 (87) 93 10/21/17 01:02 98.5 78 18 134/65 (88) 95 10/21/17 00:02 78 22 140/78 (98) 95 10/21/17 00:02 78 22 140/78 (98) 95 10/20/17 23:01 76 19 125/65 (85) 92 10/20/17 23:00 82 10/20/17 22:01 98 22 138/70 (92) 94 10/20/17 21:01 98.2 86 19 139/64 (89) 93 10/20/17 20:08 94 Nasal Cannula 2.00 10/20/17 20:01 82 21 138/56 (83) 92 10/20/17 19:01 94 22 157/73 (101) 94 10/20/17 18:01 104 39 156/89 (111) 92 10/20/17 18:00 102 I/O 10/20/17 10/20/17 10/20/17 10/21/17 10/21/17 4/7/18 07:00 15:00 23:00 07:00 15:00 23:00 Intake Total 730 ml Output Total 1500 ml 850 ml 1200 ml Balance -1500 ml -120 ml -1200 ml Intake Oral 480 ml IV Total 250 ml Output Urine Total 1500 ml 850 ml 1200 ml Stool Total 0 ml Result Diagram: 10/20/17 0515 10/20/172032 Objective Remarks GENERAL: Elderly WF, mild sob SKIN: Warm and dry. HEAD: Normocephalic. EYES: No scleral icterus. No injection or drainage. NECK: Supple, trachea midline. No JVD or lymphadenopathy. CARDIOVASCULAR: Regular rate and rhythm without murmurs, gallops, or rubs. RESPIRATORY: Breath sounds equal bilaterally. No accessory muscle use. GASTROINTESTINAL: Abdomen soft, non-tender, nondistended. MUSCULOSKELETAL: No cyanosis, or edema. BACK: Nontender without obvious deformity. No CVA tenderness. A/P Assessment and Plan Resp failure, improved COPD exac HTN Anxiety PLAN: IV Solumedrol Cont Abx Aerosol nebs Supplement 02 Stable to tr to Med Surg Anoop Ward MD Oct 21, 2017 17:45
[2017-10-21] MEDS: ENOXAPARIN SODIUM 40 MG/0.4 ML SYRINGE SQ SCH (18:28)
[2017-10-21] MEDS: AZITHROMYCIN INJ 250 MG in SODIUM CHLOR 0.9% 250 ML INJ 250 ML IV SCH (18:33)
[2017-10-22] VITALS (7 sets, daily range): BP systolic 115–175; BP diastolic 63–93; PULSE 55–79; RESP 18–20; TEMP 96.6–97.7; O2SAT 92–98
[2017-10-22] MEDS: methylPREDNISolone SOD SUCC 40 MG/1 ML VIAL IV PUSH SCH ×3 (06:00→17:48)
[2017-10-22] MEDS: INSULIN ASPART SUPPLEMENTAL SCALE SQ SCH ×3 (08:00→17:00)
[2017-10-22] MEDS: RESP: ALBUTEROL 2.5 MG/IPRATROPIUM 0.5 MG NEB (SCH) INH ×2 (08:02→13:36)
[2017-10-22] MEDS ORDERED: POLYETHYLENE GLYCOL 17 GM PKG PO SCH (09:00)
[2017-10-22] MEDS: DOCUSATE SODIUM 50 MG/SENNA 8.6 MG TAB PO SCH (09:16)
[2017-10-22] MEDS: FUROSEMIDE 20 MG TAB PO SCH (09:16)
[2017-10-22] MEDS: FAMOTIDINE 20 MG TAB PO SCH (09:16)
[2017-10-22] MEDS: BUDESONIDE-FORMOTEROL 160/4.5 MCG INHALER INH SCH (09:19)
[2017-10-22 14:25] LABS: CALCIUM 8.3 MG/DL (8.5-10.1)
[2017-10-22 14:26] LABS: BICARBONATE 37.6 MEQ/L (21.0-32.0)
[2017-10-22 14:29] LABS: CREATININE 1.3 MG/DL (0.50-1.00)
[2017-10-22] MEDS ORDERED: Budeson-Formot 160-4.5 Mcg Inh INH (14:52)
[2017-10-22] MEDS ORDERED: PRED20 PO (14:52)
[2017-10-22] MEDS ORDERED: AZIT500T2 PO (14:52)
[2017-10-22] MEDS ORDERED: FURO20TA PO (14:52)
[2017-10-22] MEDS ORDERED: Albuterol-Ipratropium Neb INH (14:52)
--- NOTE | 2017-10-22 14:58 | HHI.DS ---
Discharge Summary Admission Date Oct 19, 2017 at 16:20 Discharge Date: Oct 22, 2017 Admitting Diagnosis COPD; Back Pain (1) Acute on chronic respiratory failure with hypoxemia ICD Code: J96.21 - Acute and chronic respiratory failure with hypoxia Status: Acute (2) COPD with acute exacerbation ICD Code: J44.1 - Chronic obstructive pulmonary disease with (acute) exacerbation Status: Acute (3) Hypertension ICD Code: I10 - Essential (primary) hypertension Status: Chronic Procedures none Brief History - From Admission This 72-year-old ill appearing woman presents to the emergency department with acute exacerbation of respiratory distress. She has COPD by history but became acutely worse over the past 36 hours. Her sister states that when she was confused earlier today, had markedly difficult respiratory pattern with quite labored breathing. Sister states that she had been coughing up greenish tinged sputum for several days now. There is edema involving both lower extremities, however the left side appears more chronic probably related to a previous melanoma resection. The right leg and ankle are acutely edematous. The patient has audible wheezing and labored breathing following several nebulizer treatments. Her partial pressure of carbon dioxide is 72, partly chronically compensated. My auscultation her air movement is poor bilaterally. CBC/BMP: 10/20/17 0515 10/22/17 1410 Significant Findings Laboratory Tests Test 10/19/17 16:45 10/19/17 17:10 10/20/17 05:15 10/20/17 05:16 Neutrophils (%) (Auto) 73.2 % (16.0-70.0) Basophils (%) (Auto) 3.8 % (0.0-2.0) Lymphocytes # (Auto) 0.9 TH/MM3 (1.0-4.8) Blood Urea Nitrogen 30 MG/DL (7-18) Creatinine 1.20 MG/DL (0.50-1.00) Random Glucose 148 MG/DL (74-106) Chloride Level 95 MEQ/L (98-107) Carbon Dioxide Level 35.2 MEQ/L (21.0-32.0) Estimat Glomerular Filtration Rate 44 ML/MIN (>89) Lactic Acid Level 2.5 mmol/L (0.4-2.0) B-Type Natriuretic Peptide 218 PG/ML (0-100) Blood Gas HCO3 36 mmol/L (22-26) Blood Gas Base Excess 9.2 mmol/L (-2-2) Blood Gas Oxygen Saturation 89 % (90-100) Arterial Blood pH 7.31 (7.380-7.420) Arterial Blood Partial Pressure CO2 72 mmHg (38-42) Test 10/20/17 20:33 10/22/17 14:10 Blood Urea Nitrogen 37 MG/DL (7-18) 40 MG/DL (7-18) Creatinine 1.40 MG/DL (0.50-1.00) 1.30 MG/DL (0.50-1.00) Random Glucose 134 MG/DL (74-106) 119 MG/DL (74-106) Chloride Level 96 MEQ/L (98-107) Carbon Dioxide Level 37.7 MEQ/L (21.0-32.0) 37.6 MEQ/L (21.0-32.0) Anion Gap 3 MEQ/L (5-15) 4 MEQ/L (5-15) Estimat Glomerular Filtration Rate 37 ML/MIN (>89) 40 ML/MIN (>89) Calcium Level 8.3 MG/DL (8.5-10.1) Imaging Last Impressions Chest CT 10/20/17 1843 Signed Impressions: Service Date/Time: Friday, October 20, 2017 23:32 - CONCLUSION: 1. Moderate severity upper lobe predominant pulmonary parenchymal emphysema. 2. Mild inflammatory change/atelectasis in the lingula less left upper lobe. No evidence of pulmonary consolidation. 3. Atherosclerotic disease with extensive aortic calcification. Coronary artery calcification. Zack Osuna MD Chest X-Ray 10/19/17 1401 Signed Impressions: Service Date/Time: October 14:14 - CONCLUSION: The lungs are clear. Ruiz Kennedy MD PE at Discharge GENERAL: This is a elderly female appears comfortable CARDIOVASCULAR: Regular rate and rhythm without murmurs RESPIRATORY: mild exp wheezing. GASTROINTESTINAL: Abdomen soft, non-tender, nondistended. MUSCULOSKELETAL: Extremities without edema. NEURO: Alert & Oriented. Moves all ext x4. speaking in full sentences Pt update on day of discharge Patient tells me she is feeling better. Coughing is improving a lot compared to when she first came in. Admits to mild wheezing. Per family members, at bedside, pt doesn't have a PCP. They hope that she will be moving to [place] after she leaves the rehab and they will help find a primary care doctor for her. They do not know patient's baseline creatinine. She denies any CP/N/V Hospital Course (1) Acute on chronic respiratory failure with hypoxemia Overall improved. s/p BiPAP, steroids and bronchodilators failed walk test and will need oxygen upon d/c Continue to wean as tolerated Echocardiogram unremarkable other than mildly elevated PA pressure (2) COPD with acute exacerbation Patient on no home medications. She doesn't have a PCP. I have encouraged her to get one. Family at bedside will look for one when she moves to [facility] Continue to follow-up with nebulizers and patient education Transition to po steroid taper. continue Azithromycin as an outpatient Primary function testing per pulmonary consult which is appreciated f/u w pulm as an outpatient as well. continue symbicort. duonebs TID for 4 days then q6hrs prn. (3) Hypertension Chronic (4) CKD: baseline unknown. Pt hasn't seen PCP in many years. Cr today is 1.3 (2 days ago 1.4). Cr same since admission. Pt to f/u w PCP and Cr to be monitored while at the rehab Pt Condition on Discharge: Stable Discharge Disposition: Discharge to SNF Discharge Time: > 30 minutes Discharge Instructions DIET: Follow Instructions for: Heart Healthy Diet Activities you can perform: Regular-No Restrictions Follow up Referrals: PCP Follow-up - 1 Week Pulmonology - 1 Week New Orders: BASIC METABOLIC PROF - 2-3 Days New Medications: Azithromycin (Azithromycin) 500 Mg Tab 500 MG PO DAILY for Infection, #3 TAB 0 Refills Furosemide (Furosemide) 20 Mg Tab 20 MG PO DAILY, #30 TAB [Albuterol-Ipratropium Neb] () 1 AMPULE NEBU 1 AMPULE INH Q6HR PRN for SOB/WHEEZING Please give TID scheduled then q6hrs prn SOB/Wheezing [Budeson-Formot 160-4.5 Mcg Inh] () 60 PUFF AERO 2 PUFF INH Q12HR, #1 Changed Medications: Prednisone (Prednisone) 20 Mg Tab 40 MG PO DAILY for 5 Days, #15 TAB 0 Refills (Changed from: 10; Take 40 mg (2 tablets) daily for 5 days) Take 40 mg (2 tablets) daily for 5 days then 20mg (1 tab) daily x 3 days then 10mg po daily x 4 days then stop. Renetta Stuart MD Oct 22, 2017 14:58
[2017-10-22] MEDS: AZITHROMYCIN INJ 250 MG in SODIUM CHLOR 0.9% 250 ML INJ 250 ML IV SCH (17:00)
== END 2017-10-22 17:56 | DRG 189 ==
LOC: PHED 13:55 → PHEDA 16:20 → UNDOADMIN 16:20 → PHICU 17:30 → PH3A 10-21 22:09
PROVIDERS: ADMIT Hospitalist; ATTEND Hospitalist
PROC: 5A09357 Assistance with Respiratory Ventilation, Less than 24 Consecutive Hours, Continuous Positive Airway Pressure (ICD-10-PCS; principal; 2017-10-19)
DX: J96.21 Acute and chronic respiratory failure with hypoxia (principal); G93.41 Metabolic encephalopathy; J44.1 Chronic obstructive pulmonary disease with (acute) exacerbation; E87.70 Fluid overload, unspecified; F17.210 Nicotine dependence, cigarettes, uncomplicated; I12.9 Hypertensive chronic kidney disease with stage 1 through stage 4 chronic kidney disease, or unspecified chronic kidney disease; N18.9 Chronic kidney disease, unspecified; E66.9 Obesity, unspecified; R79.89 Other specified abnormal findings of blood chemistry; K59.00 Constipation, unspecified; Z85.820 Personal history of malignant melanoma of skin
CPT/HCPCS: 36600; 71045; 71250; 80048; 82805; 82948; 83605; 83880; 85025; 87641; 93005; 93306; 94002; 94060; 94618; 94640; 94664; 96361; 96374; J0456; J1650; J1815; J1940; J2920; J2930; J7030; J7050